=== PATIENT | male | born 1995 | race Hispanic/Latino ===

== ENCOUNTER 2019-12-01 14:01 | Emergency (ER) | payer OTHER ==
[2019-12-01] MEDS ORDERED: VANCOMYCIN 1GM+NS 250ML 250 ML IV ONE (15:01)
[2019-12-01] MEDS ORDERED: KETOROLAC TROMETHAMINE 30MG/ML ONE (15:01)
[2019-12-01] MEDS ORDERED: ZOSYN 3.375GM+NS 50ML 50 ML IV ONE (15:01)
[2019-12-01 15:04] LABS: BASOPHILS % (AUTO) 0.3 % (0.0-5.0); EOSINOPHILS % (AUTO) 1.1 % (0.0-8.0); HEMATOCRIT 43.7 % (42-54); LYMPHOCYTES % (AUTO) 21.8 % (21.0-51.0); MEAN CORPUSCULAR HEMOGLOBIN 29.8 pg (27.0-33.0); MEAN CORPUSCULAR HGB CONC 33.9 g/dL (32.0-36.0); MEAN CORPUSCULAR VOLUME 87.9 fL (79-99); MONOCYTES % (AUTO) 5.9 % (3.0-13.0); NEUTROPHILS % (AUTO) 70.7 % (40.0-77.0); PLATELET COUNT (AUTO) 365 K/uL (130-400); RED BLOOD CELL COUNT(AUTO) 4.97 MIL/uL (4.50-6.20); RED CELL DISTRIBUTION WIDTH 12.1 % (11.0-15.5); WHITE BLOOD COUNT (AUTO) 8.9 K/uL (4.8-10.8)
[2019-12-01 15:14] LABS: POTASSIUM 4.1 mmol/L (3.5-5.1)
[2019-12-01 15:19] LABS: BILIRUBIN,TOTAL 0.3 mg/dL (0.2-1.0); CRP QUANTITATIVE 19.5 mg/L (0.00-9.0); TOTAL PROTEIN, SERUM 7.9 g/dL (6.0-8.3)
[2019-12-01 16:25] LABS: ERYTHROCYTE SEDIMENTATION RATE 37 MM/HR (0-15)
== END 2019-12-01 16:32 | disposition left against medical advice (07) ==
LOC: EDH 14:01
DX: L03.011 Cellulitis of right finger (principal); Z90.49 Acquired absence of other specified parts of digestive tract; Z72.0 Tobacco use
CPT/HCPCS: 36415; 73140; 80053; 85025; 85651; 86140; 96365; 96375; 99284; J1885; J2543; J3370